=== PATIENT | female | born 2000 | race Caucasian/White ===

== ENCOUNTER 2023-05-26 14:11 | Outpatient (CLI) | payer BC | END 2023-05-26 14:12 | disposition home or self-care (01) | LOC: ULT 14:11 | PROVIDERS: ATTEND Internal Medicine Gastroenterology | DX: R10.9 Unspecified abdominal pain (principal); R19.8 Other specified symptoms and signs involving the digestive system and abdomen | CPT/HCPCS: 76705 ==

== ENCOUNTER 2024-03-01 13:11 | Outpatient (CLI) | payer BC ==
[2024-03-01] MEDS ORDERED: Bacteriostatic Normal Saline 30 ML VIAL ONE (15:01)
[2024-03-01] MEDS ORDERED: Sterile Water 10 ML ONE (15:01)
[2024-03-01] MEDS ORDERED: Sincalide 5 MCG VIAL ONE (15:01)
== END 2024-03-01 13:12 | disposition home or self-care (01) ==
LOC: NM 13:11
PROVIDERS: ATTEND Internal Medicine Gastroenterology
DX: R10.9 Unspecified abdominal pain (principal); R19.8 Other specified symptoms and signs involving the digestive system and abdomen; R11.0 Nausea; K64.8 Other hemorrhoids
CPT/HCPCS: 78227; A9537; J2805